=== PATIENT | female | born 1975 | race Caucasian/White ===

== ENCOUNTER 2019-02-10 10:55 | Emergency (ER) | payer MEDICAID ==
[2019-02-10] MEDS: IBUPROFEN 800 MG TAB PO (11:53)
== END 2019-02-10 12:43 | disposition home or self-care (01) ==
LOC: FTE 10:55
DX: S82.831A Other fracture of upper and lower end of right fibula, initial encounter for closed fracture (principal); W18.39XA Other fall on same level, initial encounter; Y92.9 Unspecified place or not applicable
CPT/HCPCS: 29515; 73590; 73610-RT; 99283-25